=== PATIENT | female | born 2000 | race Caucasian/White ===

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

== ENCOUNTER 2018-01-10 02:05 | Emergency (ER) | END 2018-01-10 03:21 | disposition left against medical advice (07) ==

== ENCOUNTER 2018-04-09 10:08 | Outpatient (CLI) | END 2018-04-09 12:06 | disposition home or self-care (01) ==

== ENCOUNTER 2018-06-24 11:05 | Outpatient (CLI) | END 2018-06-24 12:35 | disposition home or self-care (01) ==

== ENCOUNTER 2018-06-27 15:48 | Inpatient (IN) | payer MEDICAID ==
[~2018-06-27] VITALS: Ht 157.5 cm; Wt 102.2 kg
[~2018-06-27 15:48] MED LIST changes: -ACET500C5 PO; -HYDR-2086 PO; -IBUP-1542 PO; -IBUP-727 PO; -NAPR-260 PO; +NITR-58 PO; -OFLO5DRO7 BOTH EARS; +PREN1TAB71 PO
[2018-06-27 15:55] VITALS: BP 120/74; PULSE 110; RESP 19; Ht 157.5 cm; Wt 102.2 kg
[2018-06-27] MEDS ORDERED: METHYLERGONOVINE 0.2 MG INJ IM PRN (16:00)
[2018-06-27] MEDS ORDERED: OXYTOCIN 30 UNITS/LR 500 ML IV SCH (16:00)
[2018-06-27] MEDS ORDERED: LIDOCAINE 1% (MPF) 30 ML INJ INJ PRN (16:00)
[2018-06-27] MEDS ORDERED: CARBOPROST 250 MCG INJ IM PRN (16:00)
[2018-06-27] MEDS ORDERED: BUTORPHANOL 1 MG INJ IV PRN (16:00)
[2018-06-27] MEDS ORDERED: BUTORPHANOL 2 MG INJ IV PRN (16:00)
[2018-06-27] MEDS ORDERED: MISOPROSTOL 200 MCG TAB PR PRN (16:00)
[2018-06-27] MEDS ORDERED: OXYTOCIN 30 UNITS/LR 500 ML IV PRN (16:00)
[2018-06-27] MEDS ORDERED: IBUPROFEN 600 MG TAB PO PRN (16:00)
[2018-06-27] MEDS ORDERED: LACTATED RINGER'S 1,000 ML IV PRN (17:20)
--- NOTE | 2018-06-27 17:54 | HP ---
Date/Time of Note Date/Time of Note DATE: 06/27/18 TIME: 17:51 OB - History Hx of Present Free Text/Dictation 18-year-old female 39 weeks admitted for elective induction of labor Last Menstrual Period: Sep 03, 2017 Estimated Due Date: Jul 03, 2018 : 1 Para: 0 Care: Good Care Ultrasounds: Normal mid trimester US Obstetrical Complications: Other (Elevated inhibin level) Medical Complications: None Past Family/Social History * Past Medical, Surgical, Family and Obstetric Histories reviewed from chart. Blood Type: A- Rubella: immune RPR/VDRL: Negative GBS Status: Negative HBsAG: Negative OB Admission Exam Vital Signs Vital Signs Vital Signs Date Temp Pulse Resp B/P (MAP) Pulse Ox O2 O2 Flow FiO2 Time Delivery Rate 06/27/18 98.3 110 19 120/74 Room Air 15:55 (89) Physical Exam HEENT: WNL Heart: Rhythm Normal Lungs: Clear, Equal Abdomen: WNL Extremities: Normal Reflexes: Normal Cervical Dilatation: None Effacement: 0% Station: -3 Membranes: Intact Heart Rate: 140's Decelerations: No Decelerations Varibility: Marked Contractions on Admission: None Last 72 hours Lab Results CBC & BMP 06/27/18 16:45 OB Assessment/Plan Reason for admission: induction of labor Other Assessment: Term gestation Other plan: Start induction using Cytotec MERY ARELLANO MD Jun 27, 2018 17:54
[2018-06-27] MEDS: MISOPROSTOL 50 MCG CAPSULE PO SCH ×2 (17:59→23:06)
[2018-06-27] MEDS: LACTATED RINGER'S 1,000 ML IV SCH ×2 (18:00→23:06)
[2018-06-28] MEDS: MISOPROSTOL 50 MCG CAPSULE PO SCH ×2 (05:35→10:00)
[2018-06-28] MEDS: LACTATED RINGER'S 1,000 ML IV SCH ×3 (07:05→21:38)
[2018-06-28] MEDS ORDERED: OXYTOCIN 30 UNITS/LR 500 ML IV SCH (10:30)
--- NOTE | 2018-06-28 16:37 | QN ---
Documentation Comment requested to ARM by Dr Malagon told patient 3cm VE very post 1-2 /long / -2 even high decided not to do ARM not to prolonging the duration of ruptured membrane TOMÁS WRIGHT MD Jun 28, 2018 16:36
--- NOTE | 2018-06-28 20:10 | PN ---
Date/Time of Note Date/Time of Note DATE: 06/28/18 TIME: 20:10 OB Subjective Subjective Subjective Patient complaint of uterine contractions OB Objective Objective Objective Vital signs stable on as well as a general physical exam Cervix is 50% in 2 cm Patient was already started on Pitocin augmentation of labor OB Assessment/Plan Reason for admission: induction of labor Other Assessment: 39+ weeks gestation Other plan: Continue with Pitocin augmentation of labor MERY ARELLANO MD Jun 28, 2018 20:10
[2018-06-28] MEDS ORDERED: FENTAnyl 2MCG/ML-ROPIV 0.2% 100 ML ONE (21:01)
--- NOTE | 2018-06-28 21:27 | PREAC ---
Date/Time of Note Date/Time of Note DATE: 06/28/18 TIME: 21:26 Anesthesia Eval and Record Evaluation Time Pre-Procedure Interview DATE: 06/28/18 TIME: 21:26 Age 18 Sex female NPO: 8 hrs Preoperative diagnosis IUP Planned procedure L&D Past Medical History Past Medical History: Includes GI: Morbid obesity Surgery & Anesthesia Issues No known issue Meds Anticoagulation: No Beta Michaela within 24 hr: No Reason Beta Michaela not given: Pt. not on B-Michaela Reported Medications Nitrofurantoin Monohyd Macrocr* (Macrobid*) 100 Mg Capsr, 100 MG PO BID, CAP 06/24/18 Vit No.130/Iron/FA ( Tablet) 1 Each Tablet, 1 EACH PO DAILY 06/13/18 Current Medications Lactated Ringer's 1,000 ml @ 125 mls/hr Q8H IV Last administered on 06/28/18at 15:18; Admin Dose 125 MLS/HR; Start 06/27/18 at 15:57 Butorphanol Tartrate (Stadol) 1 mg Q2H PRN IV PAIN; Start 06/27/18 at 16:00 Butorphanol Tartrate (Stadol) 2 mg Q2H PRN IV PAIN; Start 06/27/18 at 16:00 Lidocaine (Xylocaine 1% (Mpf)) 30 ml ONCE PRN INJ EPISIOTOMY; Start 06/27/18 at 16:00 Oxytocin/Lactated Ringer's 500 ml @ 500 mls/hr ONCE POST IV ; Start 06/27/18 at 16:00 Oxytocin/Lactated Ringer's 500 ml @ 125 mls/hr POST IV ; Start 06/27/18 at 16:00 Ibuprofen (Motrin) 600 mg ONCE PRN PO PAIN LEVEL 1-5; Start 06/27/18 at 16:00 Oxytocin/Lactated Ringer's 500 ml @ 0 mls/hr ONCE PRN IV VAGINAL BLEEDING; Start 06/27/18 at 16:00 Methylergonovine Maleate (Methergine) 0.2 mg ONCE PRN IM VAGINAL BLEEDING; Start 06/27/18 at 16:00 Carboprost Tromethamine (Hemabate) 250 mcg ONCE PRN IM VAGINAL BLEEDING; Start 06/27/18 at 16:00 Misoprostol (Cytotec) 1,000 mcg ONCE PRN AL VAGINAL BLEEDING; Start 06/27/18 at 16:00 Lactated Ringer's 1,000 ml @ 2,000 mls/hr Q30M PRN IV ANESTHESIA Last administered on 06/28/18at 21:07; Admin Dose 2,000 MLS/HR; Start 06/27/18 at 17:20 Oxytocin/Lactated Ringer's 500 ml @ 0 mls/hr Q0M IV Last administered on 06/28/18at 10:59; Admin Dose 1 MLS/HR; Start 06/28/18 at 10:30 Meds reviewed: Yes Allergies Coded Allergies: No Known Allergy (Unverified , 04/09/18) Allergies Reviewed: Yes Labs/Studies Labs Reviewed: Reviewed by anesthesiologist Result Diagram: 06/27/18 1645 test: Positive Studies: ECG Pre-procedure Exam Last vitals Vital Signs Date Temp Pulse Resp B/P (MAP) Pulse Ox O2 O2 Flow FiO2 Time Delivery Rate 06/27/18 98.3 110 19 120/74 Room Air 15:55 (89) Airway: Adequate mouth opening, Adequate thyromental dist Mallampati: Mallampati II Teeth: Normal Lung: Normal Heart: Normal ASA Physical Status ASA physical status: 2 Emergency: None Planned Anesthetic Neuraxial: Epidural Planned Pain Management Epidural Pre-operative Attestations Prior to commencing anesthesia and surgery, the patient was re-evaluated, there was verification of: *The patient's identity *The results of appropriate recent lab work and preoperative vital signs *The above evaluation not changing prior to induction *Anesthetic plan, risk benefits, alternative and complications discussed with patient/family; questions answered; patient/family understands, accepts and wishes to proceed. CHESTER MANNING MD Jun 28, 2018 21:27
[2018-06-28] MEDS ORDERED: DIPHENHYDRAMINE 50 MG INJ IV PRN (21:30)
[2018-06-28] MEDS ORDERED: ONDANSETRON 4 MG INJ IV PRN (21:30)
[2018-06-28] MEDS ORDERED: NALOXONE (0.4 MG/ML) INJ IV PRN (21:30)
[2018-06-28] MEDS ORDERED: FENTAnyl 2MCG/ML-ROPIV 0.2% 100 ML BAG EPI SCH (21:30)
[2018-06-29] MEDS: LACTATED RINGER'S 1,000 ML IV SCH ×2 (02:32→09:10)
[2018-06-29] MEDS ORDERED: AMPICILLIN 2 GM/NS (PMX) 100 ML IV ONE (10:00)
[2018-06-29] MEDS: OXYTOCIN 30 UNITS/LR 500 ML IV SCH ×2 (12:03→13:43)
--- NOTE | 2018-06-29 12:42 | LDN ---
Date/Time of Note Date/Time of Note DATE: 06/29/18 TIME: 12:41 Delivery Summary Normal spontaneous vaginal delivery of a viable over intact perineum Weeks of Gestation 39+ weeks Placenta Delivered: Spontaneously, Intact & Complete Meconium: none Episiotomy: No Perineal laceration: 0 Anesthesia type: Epidural Estimated blood loss: 300 Sponge & Needle done & correct: Yes All needle counts correct: Yes Any foreign bodies felt in the: No Infant Delivery Information Sex Infant Sex: female Apgars 1 Minute: 9 5 Minute: 9 Suctioning Nose & mouth suctioned at marquis: Yes Delee suction performed: No Umbilical Cord Umbilical cord with: 3 Vessels Cord presentations: no nuchal cord Cord Blood was obtained: Yes Mother & Baby Disposition Disposition Mom & Baby to Maternity; Good: Yes (Mother and baby were recovering in good condition) Mom transferred to: Other (Maternity) Baby to NICU: No MERY ARELLANO MD Jun 29, 2018 12:42
--- NOTE | 2018-06-29 12:44 | NUR ---
Referral received stating patient with a history of anxiety and depression. This life insurance underwriter attempted to meet with patient at bedside for assessment, however patient was actively laboring. This life insurance underwriter will endorse to weekend team for follow up on 06/30/18.
[2018-06-29] MEDS ORDERED: ACETAMINOPHEN 1000MG/100ML IV 100 ML IVPB ONE (13:00)
[2018-06-29] MEDS ORDERED: AMPICILLIN 1 GM/NS (PMX) 50 ML IV SCH (14:00)
[2018-06-29 14:50] VITALS: BP 106/51; PULSE 61; RESP 18
[2018-06-29] MEDS: LACTATED RINGER'S 1,000 ML IV* SCH ×2 (14:51→22:51)
[2018-06-29] MEDS ORDERED: ZOLPIDEM 5 MG TAB PO PRN (15:00)
[2018-06-29] MEDS ORDERED: BENZOCAINE 20% 56 ML SPRAY TOP PRN (15:00)
[2018-06-29] MEDS ORDERED: OXYTOCIN 30 UNITS/LR 500 ML IV PRN (15:00)
[2018-06-29] MEDS ORDERED: CARBOPROST 250 MCG INJ IM PRN (15:00)
[2018-06-29] MEDS ORDERED: METHYLERGONOVINE 0.2 MG INJ IM PRN (15:00)
[2018-06-29] MEDS ORDERED: DIBUCAINE 1% 30 GM OINT TOP PRN (15:00)
[2018-06-29] MEDS ORDERED: HYDROCODONE/APAP (5/325) TAB PO PRN ×2 (15:00)
[2018-06-29] MEDS ORDERED: WITCH HAZEL/GLYCERIN PAD PR PRN (15:00)
[2018-06-29] MEDS ORDERED: MISOPROSTOL 200 MCG TAB PR PRN (15:00)
[2018-06-29] MEDS: CEPHALEXIN 500 MG CAP PO SCH ×2 (17:58→23:52)
[2018-06-29] MEDS: IBUPROFEN 600 MG TAB PO SCH ×2 (17:59→23:52)
[2018-06-29 20:00] VITALS: BP 103/59; PULSE 94; RESP 18
[2018-06-29] MEDS: SENNA/DOCUSATE NA (8.6MG/50MG) TAB PO SCH (21:29)
[2018-06-29] MEDS: MAGNESIUM HYDROXIDE 30ML CUP PO SCH (21:29)
[2018-06-30] VITALS: BP 114/76; PULSE 90; RESP 19
[2018-06-30] MEDS: LANOLIN HPA 1 PKT TOP PRN ×2 (02:14→06:33)
[2018-06-30 04:00] VITALS: BP 93/57; PULSE 85; RESP 18
--- NOTE | 2018-06-30 05:39 | NUR ---
EOSS: PATIENT IN STABLE CONDITION. BONDING WELL WITH . WELL. FUNDUS FIRM AND SMALL AMOUNT OF LOCHIA. PASSING GAS, DUE TO BM. VOIDING AND AMBULATING. RHOGAM WORKUP DUE IN AM. AFEBRILE.
[2018-06-30] MEDS: CEPHALEXIN 500 MG CAP PO SCH ×3 (06:12→17:47)
[2018-06-30] MEDS: IBUPROFEN 600 MG TAB PO SCH ×3 (06:29→17:47)
[2018-06-30] MEDS: LACTATED RINGER'S 1,000 ML IV* SCH (06:51)
[2018-06-30 08:20] VITALS: BP 100/51; PULSE 100; RESP 18
[2018-06-30] MEDS: SENNA/DOCUSATE NA (8.6MG/50MG) TAB PO SCH ×2 (10:24→21:13)
[2018-06-30] MEDS: MAGNESIUM HYDROXIDE 30ML CUP PO SCH ×2 (10:24→21:00)
--- NOTE | 2018-06-30 11:31 | DS ---
Date/Time of Note Date/Time of Note home today or next day DATE: 06/30/18 TIME: 11:29 Obstetrical Discharge Record Final Diagnosis Final Diagnosis: Term delivered Other Final Diagnosis S/P vaginal delivery Vaginal Delivery Obstetrical Delivery: Spontaneous Complications Augmentation: Yes Induction: Yes Condition on Discharge Physical Assessment Last Vitals: see nurses notes Voiding: Yes Bowel Movement: Yes Breast: Soft, non-tender, Filling Fundus: Firm Abdomen and Incision: abdomen: soft BS + fundus: firm Episiotomy: NA, perineum is clean Calf Tenderness: No Patient Condition: Good MERY ARELLANO MD Jun 30, 2018 11:31
--- NOTE | 2018-06-30 11:33 | PD.PPDC ---
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 Physician Information 18 y/o female had vaginal delivery Diagnosis [id number] Final Diagnosis: [id number] S/P vaginal delivery Condition [id number] Patient Condition: Blgzy1f Good Diet Whrzb2Ee Diet: Xpjvh5a Resume Regular Diet Activity/Restrictions [id number] Activity: Bgpsm5f Normal Activity May Shower [id number] Restrictions: Jwrcy5l Nothing in the Vagina [id number] Return to Work or School: [id number] Aug 19, 2018 Follow-up Follow-up with Physician: 2, 4, Week/Weeks (in clinic) Return to clinic for [id number] OB Instructions: Iamui7l Breast Tenderness Depression Comment: pelvic rest x 6 weeks MERY ARELLANO MD Jun 30, 2018 11:33
[2018-06-30] MEDS ORDERED: IBUP-1542 PO (11:34)
--- NOTE | 2018-06-30 13:43 | NUR ---
SW: CONSULTATION SW received a consult for patient having a history of anxiety and depression. SW met with this 18-year-old Sinhala speaking female at bedside. Patient states she lives with her at [address] [place] [address]. Patient denies having an AHCD, and she verbally designated mother Rosi Hernandez ([phone]) as primary surrogate spokesperson, and patient's / [employer] Alcala ([phone]) as secondary surrogate spokesperson. Patient states she is unemployed and is being financially supported by . States that she receives [facility] services and [employer]. States she does not drive a car and [employer] is primary mode of transportation. States she has a crib and car seat for baby. Mental Health: Patient states that she was diagnosed with anxiety and depression when she was 13 y/o. States that she had attempted suicide at age 13 when she tried to OD on pills. States that she got help. She denies any current/ recent thoughts, ideations or plans of suicide. She denies any current or recent symptoms or signs of depression, and states that she does occasionally get anxiety. SW provided patient with resources for outpatient psychotherapy and psychiatry, as well as suicide hotline phone number. Patient denies feeling depressed and states she is coping adequately. States that when she feels anxious, she is able to calm herself down by drinking water, controlling her breathing, etc. She denies any panic attacks, etc, and states that she occasionally just feels anxious. Patient denies any questions/ concerns at this time. Patient provided with resources for outpatient mental health and suicide hotline phone number. States she has good support. Mobile Home [employer]ic remains available as needed throughout patient's treatment process. Baby cleared to d/c home with parents once medically cleared.
[2018-06-30 16:00] VITALS: BP 109/57; PULSE 103; RESP 18
--- NOTE | 2018-06-30 18:19 | NUR ---
EOSS: Vital signs stable, denies pain or discomfort. Bonding with baby.
[2018-06-30 20:00] VITALS: BP 115/66; PULSE 98; RESP 19
[2018-07-01] MEDS: CEPHALEXIN 500 MG CAP PO SCH ×3 (00:24→12:35)
[2018-07-01] MEDS: IBUPROFEN 600 MG TAB PO SCH ×3 (00:24→12:34)
[2018-07-01 04:00] VITALS: BP 94/57; PULSE 82; RESP 19
--- NOTE | 2018-07-01 05:17 | NUR ---
EOSS: PATIENT IN STABLE CONDITION. BONDING WELL WITH . , PUMPING BREAST MILK, AND SUPPLEMENTING FORMULA TO INFANT VIA BOTTLE, MEDICAL INDICATION FOR HIGH BILI. FEEDING EXPRESSED BREAST MILK TO VIA SYRINGE AND BOTTLE. AMBULATING WELL, VOIDING AND HAD BM. SCANT AMOUNT OF LOCHIA, FUNDUS FIRM. AFEBRILE.
[2018-07-01 08:30] VITALS: BP 116/69; PULSE 99; RESP 17
[2018-07-01] MEDS ORDERED: DIPHTH/TET/ACEL PERTUSS (ADULT) 0.5 ML VIAL IM* ONE (09:00)
[2018-07-01] MEDS: MAGNESIUM HYDROXIDE 30ML CUP PO SCH (09:00)
[2018-07-01] MEDS ORDERED: VARICELLA VACCINE LIVE/PF 1,350 UNIT/0.5 ML ML SC* ONE (09:00)
[2018-07-01] MEDS ORDERED: MEASLES,MUMPS,RUBELLA VACCINE INJ SC* ONE (09:00)
[2018-07-01] MEDS: SENNA/DOCUSATE NA (8.6MG/50MG) TAB PO SCH (09:30)
--- NOTE | 2018-07-01 14:27 | NUR ---
Pt. was given RX x1 for Motrin, pt. verbalized understanding of side effects.
--- NOTE | 2018-07-01 14:35 | NUR ---
PT. DC'D HOME WITH BABY IN ARMS VIA WHEELCHAIR. ACCOMPANIED BY FOB, FAMILY MEMBER AND INPATIENT CARE MANAGER RN.
== END 2018-07-01 15:40 | disposition home or self-care (01) | DRG 807 ==
LOC: L-D 15:48 → PP1 06-29 14:36
PROVIDERS: ADMIT Obstetrics & Gynecology; ATTEND Obstetrics & Gynecology
PROC: 3E033VJ Introduction of Other Hormone into Peripheral Vein, Percutaneous Approach (ICD-10-PCS; 2018-06-27)
PROC: 10E0XZZ Delivery of Products of Conception, External Approach (ICD-10-PCS; principal; 2018-06-29)
DX: O99.214 Obesity complicating childbirth (principal); Z37.0 Single live birth; E66.01 Morbid (severe) obesity due to excess calories; Z3A.39 39 weeks gestation of pregnancy
CPT/HCPCS: 62319; 76815; 81001; 85025; 85610; 85730; 86592; 86850; 86870; 86885; 86900; 86901; 87086; 87340; J0131; J0290; J2590; J2790; J3010; J7120